=== PATIENT | female | born 1930 | race Caucasian/White ===

== ENCOUNTER → 2017-03-24 | Outpatient (CLI) | payer MEDICARE, BC ==
--- NOTE | 2017-03-24 13:36 | RADIOLOGY REPORT (SQ) ---
EXAM DESCRIPTION: MRI LUMBAR SPINE WITHOUT COMPLETED DATE/TIME: 03/24/2017 11:34 am REASON FOR STUDY: M51.36 OTHER INTERVERTEBRAL DISC DEGENERATION, LUMBAR REGION M51.36 OTHER INTERVE RTEBRAL DISC DEGENERATION, LUMBAR REGION COMPARISON: CT abdomen pelvis 02/17/2009 TECHNIQUE: Sagittal and Axial imaging includes T1, T2, STIR and gradient echo sequences. Coronal T2/ HASTE imaging. LIMITATIONS: None. FINDINGS: VISUALIZED UPPER ABDOMEN: Right lower pole renal cortical cyst incompletely included in th e field of view of today's study, it measures about 4 cm in diameter. Renal ultrasound recommended f or follow-up. SEGMENTATION: No transitional anatomy. The lowest well-developed disc space is labeled L5-S1. ALIGNMENT: Convex leftward lumbar curvature VERTEBRAE: Intact. BONE MARROW: Fatty reactive vertebral body endplate changes throughout the lumbar spine DISC SIGNAL: Diffuse decreased T2 weighted intervertebral disc signal. Disc space loss of height at all lumbar levels. POSTERIOR ELEMENTS: Generally intact. No pars defect evident. HARDWARE: None in the spine. CORD AND CONUS: Normal in size and signal intensity. Conus at the T12-L1 level. SOFT TISSUES: No aortic aneurysm seen. No bulky retroperitoneal adenopathy or mass. No paraspinal mas s or fluid. T11-12: At the upper edge of the field of view. No central or foraminal stenosis. Mild bilateral f acet arthropathy. T12-L1: Mild diffuse posterior disc bulging is present with mild bilateral facet and ligament hypert rophy. Borderline central canal narrowing. No significant foraminal narrowing. L1-L2: Borderline central canal stenosis results from broad diffuse posterior disc bulge and bony spu rring along with moderate bilateral facet and ligament hypertrophy. Flattening of the thecal sac int o a triangular shape best shown on axial T2 image 5. Mild bilateral inferior foraminal narrowing wit hout exiting L1 nerve root impingement. L2-L3: High-grade central canal stenosis results from broad diffuse posterior disc bulge and bony spu rring and bulky bilateral facet and ligament hypertrophy. Effacement of the CSF around the lumbar ne rve roots best shown on axial T2 image 11 and sagittal T2 image 9. Elsewhere at L2-3, moderate to high-grade right, mild left foraminal narrowing is present. There is some effacement of the fat around the exiting right L2 nerve root. L3-L4: Broad diffuse posterior disc bulge and bony spurring and bulky bilateral facet and ligament hy pertrophy causes mild central canal stenosis with flattening of the thecal sac into a triangular shap e and partial effacement of the CSF around the lumbar nerve roots best shown on axial images 15-18. There is high-grade right foraminal narrowing with effacement of the fat around the exiting right L3 nerve root. Moderate left foraminal narrowing without definite exiting left L3 nerve root impingemen t. L4-L5: Broad diffuse posterior disc bulge and bony spurring along with moderate bilateral facet and l igament hypertrophy. Borderline central canal stenosis. Moderate bilateral foraminal narrowing with partial effacement of the fat around the exiting L4 nerve roots. L5-S1: Mild diffuse posterior disc bulge and bony spurring is present with more diffuse broad left fo raminal and lateral disc bulge and bony spurring. Mild facet hypertrophy. No central or right eliecer inal stenosis. High-grade left foraminal narrowing with effacement of the fat around the exiting lef t L5 nerve root SACRUM: Visualized upper sacrum intact. OTHER: No other significant findings. IMPRESSION: Multilevel degenerative changes as above. TECHNICAL DOCUMENTATION: JOB ID: [id number] [employer] All Rights Reserved
== END ==
LOC: RAD 10:21
PROVIDERS: ATTEND Family Medicine
DX: M51.36 Other intervertebral disc degeneration, lumbar region (principal)
CPT/HCPCS: 72148